=== PATIENT | female | born 1950 | race Caucasian/White ===

== ENCOUNTER 2023-03-27 14:00 | Emergency (ER) | payer MEDICARE, BC, SELFPAY ==
[2023-03-27] VITALS (13 sets, daily range): BP systolic 147–167; BP diastolic 69–92; PULSE 64–74; RESP 12–18; TEMP 36.9; O2SAT 95–99; BMI 37.8
--- NOTE | 2023-03-27 14:03 | ED.NURSE ---
Per Dr. Bates, no TTA needed.
--- NOTE | 2023-03-27 14:14 | CRLHL7_ITS ---
For Patients: As a result of the Cures Act, medical imaging exams and procedure reports are released immediately into your electronic medical record. You may view this report before your referring provider. If you have questions, please contact your health care provider. INDICATION: Injury COMPARISON: None TECHNIQUE: CT examination of the cervical spine is performed without contrast using spiral technique. Thin axial, sagittal and coronal reconstructions were made. Please note that all CT scans at this facility use dose modulation, iterative reconstruction, and/or weight-based dosing when appropriate to reduce radiation dose to as low as reasonably achievable. FINDINGS: : There is straightening which is usually due to muscle spasm, positioning or immobilization device. There is no visible acute fracture, dislocation or destructive process. There has been anterior fusion at C5, C6 and C7. Anterior fusion plate appears to be intact. There are degenerative changes especially just below the fusion. IMPRESSION: Straightening. Degenerative changes. Status post ACF at C5 through C7. No acute fracture, dislocation or destructive process Please note that all CT scans at this facility use dose modulation, iterative reconstruction, and/or weight-based dosing when appropriate to reduce radiation dose to as low as reasonably achievable. Dictated by Anand Coreas MD @ 03/27/2023 3:10:49 PM (Electronically Signed)
--- NOTE | 2023-03-27 14:14 | CRLHL7_ITS ---
For Patients: As a result of the Century Cures Act, medical imaging exams and procedure reports are released immediately into your electronic medical record. You may view this report before your referring provider. If you have questions, please contact your health care provider. INDICATION: Injury COMPARISON: None TECHNIQUE: CT examination of the head was performed as axial sections without intravenous contrast. Images were obtained from the vertex of the skull through the skull base. Please note that all CT scans at this facility use dose modulation, iterative reconstruction, and/or weight-based dosing when appropriate to reduce radiation dose to as low as reasonably achievable. FINDINGS: The brain shows no sign of mass lesion, mass effect, hemorrhage, or edema. There are involutional changes. There is letb-ao-kwogheqk cortical atrophy and there is mild to moderate white matter disease. There is no hydrocephalus. The visualized portions of the orbits are normal in appearance. The osseous structures are normal in appearance with no sign of abnormality in the skull base or calvarium. IMPRESSION: Involutional changes. No acute-appearing findings. Please note that all CT scans at this facility use dose modulation, iterative reconstruction, and/or weight-based dosing when appropriate to reduce radiation dose to as low as reasonably achievable. Dictated by Anadn Coreas MD @ 03/27/2023 3:07:43 PM (Electronically Signed)
--- NOTE | 2023-03-27 14:14 | CRLHL7_ITS ---
For Patients: As a result of the Century Cures Act, medical imaging exams and procedure reports are released immediately into your electronic medical record. You may view this report before your referring provider. If you have questions, please contact your health care provider. Indication: Fall. Technique: Two views of the lumbar spine, AP, lateral. Comparison: None Findings/Impression: Possible acute fractures through the L1 and L2 pars articularis, versus chronic pars defects. Recommend further evaluation with CT. Extensive multilevel endplate degenerative changes. Extensive facet arthropathy at the levels of L2 through S1. Dictated by Shani Crowe MD @ 03/27/2023 3:42:37 PM (Electronically Signed)
--- NOTE | 2023-03-27 14:15 | ED.FALL ---
HPI - Fall General Chief Complaint: Fall/Minor Trauma Stated Complaint: Fell, hit head/spine Time Seen by Provider: 03/27/23 14:08 History of Present Illness HPI Narrative: This 72-year-old female comes in for evaluation of injuries from a fall that occurred just prior to arrival. She states that she was working out in her garden and fell over backwards landing on her low back and then hitting her head. She states that she did not have loss of consciousness but certainly was dazed briefly. She states she laid there for about 5 minutes then was able to get up and ambulate. She reports pain in her low back, head, and neck. Related Data Previous Rx's Medication Instructions Recorded cyclobenzaprine 10 mg tablet 10 mg PO TID #15 tabs 03/27/23 hydrocodone 5 mg-acetaminophen 325 1 tab PO Q4-6H PRN pain #15 tabs 03/27/23 mg tablet ketorolac 10 mg tablet 10 mg PO Q8H 5 days #15 tabs 03/27/23 Allergies Allergy/AdvReac Type Severity Reaction Status Date / Time furosemide Allergy Severe Verified 03/27/23 14:56 latex Allergy Severe Verified 03/27/23 14:56 neomycin Allergy Severe Verified 03/27/23 14:56 silver Allergy Severe Verified 03/27/23 14:56 silver nitrate Allergy Severe Verified 03/27/23 14:56 tobramycin Allergy Severe Verified 03/27/23 14:56 almond oil Allergy Unknown Verified 03/27/23 14:56 amlodipine Allergy Unknown Verified 03/27/23 14:56 bacitracin Allergy Unknown Verified 03/27/23 14:56 ketoprofen Allergy Unknown Verified 03/27/23 14:56 lisinopril Allergy Unknown Verified 03/27/23 14:56 methocarbamol Allergy Unknown Verified 03/27/23 14:56 mometasone furoate Allergy Unknown Verified 03/27/23 14:56 morphine Allergy Unknown Verified 03/27/23 14:56 nickel Allergy Unknown Verified 03/27/23 14:56 povidone-iodine Allergy Unknown Verified 03/27/23 14:56 vancomycin Allergy Unknown Verified 03/27/23 14:56 Penicillins Allergy Verified 03/27/23 14:09 Sulfa (Sulfonamide Allergy Verified 03/27/23 14:09 Antibiotics) acrylates Allergy Unknown Uncoded 03/27/23 14:56 amitriptyline Allergy Unknown Uncoded 03/27/23 14:56 cyclopbenzaprine Allergy Unknown Uncoded 03/27/23 14:56 hydromorphone Allergy Unknown Uncoded 03/27/23 14:56 nuts Allergy Unknown Uncoded 03/27/23 14:56 oxycodone-tylenol Allergy Unknown Uncoded 03/27/23 14:56 erythromycin Allergy Uncoded 03/27/23 14:49 Review of Systems Status of ROS: Reports: 10 or more systems reviewed and unremarkable except as noted in History and below Narrative: Constitutional: No fevers, no weight gain or loss. Eyes: No discharge. No vision changes. HENT: No congestion, no sore throat, no ear pain. Cardiovascular: No chest pain, no palpitations. Respiratory: No shortness of breath, no wheezes, no cough. Gastrointestinal: No abdominal pain, no vomiting, no diarrhea. Genitourinary: No dysuria, no hematuria. Musculoskeletal: Low back pain and neck pain. Skin: No rashes, no pruritis. Neurological: No dizziness, weakness, sensory change, speech change. Endo/Heme/Allergies: No bruising or bleeding. No polydipsia. Pysch: no suicidality, no anxiety, no insomnia. All other systems reviewed and are negative. PFSH PFSH Social History Non-prescribed substance use: denies use Exam Narrative: Exam Narrative: Constitutional: Well-developed, well-nourished, no acute distress. HEENT: Normocephalic, atraumatic. Neck: Diffuse neck pain. Heart: Regular. No murmurs. Normal rate. Intact distal pulses. Lungs: Clear to auscultation. No chest discomfort. No wheezes, rhonchi, or rales. Abdomen: Normal bowel sounds. Nontender. No rebound tenderness. Genitalia: Deferred. Back: Diffuse low back pain. Extremities: Normal range of motion. No injury. Skin: Intact. No rash. Warm. No erythema or pallor. Neurologic: No altered sensation. No weakness. Alert and oriented. Psychiatric: No suicidality. No anxiety or depression. No insomnia. GCS is 15. Nursing notes and vitals signs are reviewed. Const: Vital Signs, click to edit/add: Vital Signs - 24 hr 03/27/23 14:09 03/27/23 14:21 03/27/23 14:23 Temperature 98.4 F Pulse Rate 69 71 Pulse Rate [Pulse Oximeter] 73 Respiratory Rate 18 Blood Pressure 155/85 H Blood Pressure [Le ft Forearm] 167/88 H Pulse Oximetry 99 99 97 Oxygen Delivery Me thod Room Air 03/27/23 14:24 03/27/23 14:46 03/27/23 15:00 Temperature Pulse Rate 70 70 64 Pulse Rate [Pulse Oximeter] Respiratory Rate Blood Pressure Blood Pressure [Le ft Forearm] Pulse Oximetry 95 96 99 Oxygen Delivery Me thod 03/27/23 15:02 03/27/23 15:03 03/27/23 15:15 Temperature Pulse Rate 65 65 66 Pulse Rate [Pulse Oximeter] Respiratory Rate 16 Blood Pressure 147/79 H Blood Pressure [Le ft Forearm] Pulse Oximetry 97 97 98 Oxygen Delivery Me thod Course Vital Signs Vital signs: Initial Vital Signs Temperature 98.4 F 03/27/23 14:09 Temperature Source Temporal Artery Scan 03/27/23 14:09 Pulse Rate 73 03/27/23 14:09 Pulse Rhythm Regular 03/27/23 14:09 Respiratory Rate 18 03/27/23 14:09 Blood Pressure 167/88 H 03/27/23 14:09 Blood Pressure Mean 114 H 03/27/23 14:09 Blood Pressure Position Supine 03/27/23 14:09 Pulse Oximetry 99 03/27/23 14:09 Oxygen Delivery Method Room Air 03/27/23 14:09 Vital Signs Temperature 98.4 F 03/27/23 14:09 Pulse Rate 73 03/27/23 14:09 Respiratory Rate 18 03/27/23 14:09 Blood Pressure 167/88 H 03/27/23 14:09 Pulse Oximetry 99 03/27/23 14:09 Oxygen Delivery Method Room Air 03/27/23 14:09 Temperature 98.4 F 03/27/23 14:09 Pulse Rate 66 03/27/23 15:15 Respiratory Rate 16 03/27/23 15:02 Blood Pressure 147/79 H 03/27/23 15:02 Pulse Oximetry 98 03/27/23 15:15 Oxygen Delivery Method Room Air 03/27/23 14:09 MDM - Fall MDM Narrative Medical decision making narrative: This patient comes in for evaluation of injuries from a fall that occurred just prior to arrival. She is not showing any neurologic deficits and is able to walk and talk normally. She does complain of significant neck pain with headache and also low back pain. She has had a surgery to fuse her neck in the past. CT imaging of head C-spine and lumbar spine all returned with no sign of acute injuries. She does have degenerative changes that are chronic. The patient did receive an intramuscular injection of Dilaudid 1 mg an oral doses of Benadryl. She states that she is feeling better she is able to get up to the bathroom without difficulty. She is okay to be discharged home and received prescriptions for Toradol, [place], and Flexeril. Imaging Data CT scan - head: Radiologist's impression: Involutional changes. No acute-appearing findings. CT Cervical Spine: Radiologist's impression: Straightening. Degenerative changes. Status post ACF at C5 through C7. No acute fracture, dislocation or destructive process XR Lumbar Spine: Radiologist's impression: Possible acute fractures through the L1 and L2 pars articularis, versus chronic pars defects. Recommend further evaluation with CT. Extensive multilevel endplate degenerative changes. Extensive facet arthropathy at the levels of L2 through S1. CT Lumbar spine: Radiologist's impression: 1. No acute osseous injury of the lumbar spine. 2. Moderate multilevel spondylosis. ECG Data Attestation: I personally reviewed and interpreted this ECG as follows: Interpretation: Normal sinus rhythm. Rate is 72 beats per minute. There are no ST or T-wave abnormalities. Discharge Plan Discharge Clinical Impression: Concussion without loss of consciousness, Back pain Patient Disposition: Home, Self-Care Condition: Stable Additional Instructions: Take medication as prescribed. Increase activity as tolerated. Follow up with MD or return if worsening. Prescriptions: New cyclobenzaprine 10 mg tablet 10 mg PO TID Qty: 15 0RF hydrocodone-acetaminophen 5-325 mg tablet 1 tab PO Q4-6H PRN (Reason: pain) Qty: 15 0RF ketorolac 10 mg tablet 10 mg PO Q8H 5 Days Qty: 15 0RF Follow Up/Referrals: Con Rodriguez MD [Primary Care Provider] - Stand Alone Forms: [facility] Info Instructions
--- NOTE | 2023-03-27 14:34 | ED.NURSE ---
Patient ambulated into ER. C-collar placed on neck due to neck pain.
--- NOTE | 2023-03-27 14:58 | ED.NURSE ---
took c-collar off after looking at images.
--- NOTE | 2023-03-27 15:10 | ED.NURSE ---
Report received from LOUIS Márquez.
[2023-03-27] MEDS: diphenhydrAMINE 25 MG CAPSULE PO ×2 (15:15→15:59)
[2023-03-27] MEDS: HYDROmorphone 0.5 mg/0.5 ml inj 1 MG IM (15:15)
--- NOTE | 2023-03-27 15:56 | CRLHL7_ITS ---
For Patients: As a result of the Century Cures Act, medical imaging exams and procedure reports are released immediately into your electronic medical record. You may view this report before your referring provider. If you have questions, please contact your health care provider. Indication: Fall, pain. Technique: CT of the lumbar spine was performed without intravenous contrast. Comparison: None relevant available. Findings: The lumbar vertebral body heights appear maintained without evidence of fracture. Diffuse osteopenia. Bone island within the L3 vertebral body. Mild levoconvex curvature. Mild to moderate multilevel spondylosis throughout the lumbar spine. At L3-4 disc bulge with facet hypertrophy result in moderate spinal canal narrowing. L4-5 disc bulge and facet hypertrophy result in mild to moderate spinal canal and right neural foraminal narrowing. Milder appearing spondylosis at the remaining lumbar levels. 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 Large right renal cyst. Impression: 1. No acute osseous injury of the lumbar spine. 2. Moderate multilevel spondylosis. Please note that all CT scans at this facility use dose modulation, iterative reconstruction, and/or weight-based dosing when appropriate to reduce radiation dose to as low as reasonably achievable. Dictated by Marcos Reveles MD @ 03/27/2023 4:59:00 PM (Electronically Signed)
== END 2023-03-27 17:25 | disposition home or self-care (01) ==
PROVIDERS: Emergency Provider Emergency Medicine Emergency Medical Services; PCP Family Medicine
DX: S06.0X0A Concussion without loss of consciousness, initial encounter (principal); W18.30XA Fall on same level, unspecified, initial encounter; Y93.H2 Activity, gardening and landscaping
CPT/HCPCS: 70450; 72100; 72125; 72131; 93005; 96372; 99284; 99285; A9270; J1170

== ENCOUNTER 2024-06-26 15:11 | Emergency (ER) | payer MEDICARE, BC, SELFPAY ==
[2024-06-26 15:33] VITALS: BP 165/90; PULSE 81; RESP 20; TEMP 36.2; O2SAT 97; BMI 39.9
--- NOTE | 2024-06-26 15:44 | CRLHL7_ITS ---
For Patients: As a result of the Cures Act, medical imaging exams and procedure reports are released immediately into your electronic medical record. You may view this report before your referring provider. If you have questions, please contact your health care provider. INDICATION: Cough, shortness of breath, positive COVID TECHNIQUE: 1 view chest radiograph COMPARISON: None. FINDINGS: Devices: Lower cervical ACDF. Large soft tissue attenuation from the chest wall. Lung volumes are good. Diffusely prominent interstitial markings without focal consolidation or pulmonary edema. No pleural effusion. No pneumothorax. Heart size is normal. IMPRESSION: Appearance typical of viral pneumonia. Dictated by Scarlet Kinsey MD @ 06/26/2024 4:32:00 PM (Electronically Signed)
--- NOTE | 2024-06-26 15:57 | ED.GENADULT ---
HPI - General Adult General Chief complaint: Shortness of Breath/Dyspnea Stated complaint: Covid+, shortness of breath Time Seen by Provider: 06/26/24 15:35 Source: patient Mode of arrival: ambulatory Limitations: no limitations History of Present Illness HPI narrative: 73-year-old female presenting today with body aches, decreased appetite, shortness of breath and cough going on day 3. Patient states she has not felt well for 3 days now with the symptoms mention. She tested herself for COVID 2 times today at home and they were both positive. She called the nurse line to get Diann, but unfortunately she was told to come to the ER for evaluation. Related Data Home Medications ?Medication ?Instructions ?Recorded ?Confirmed bupropion HCl 300 mg 24 hr tablet, 300 mg PO DAILY 06/26/24 06/26/24 extended release celecoxib 200 mg capsule 200 mg PO DAILY PRN pain 06/26/24 06/26/24 clobetasol 0.05 % topical ointment topical DAILY PRN 06/26/24 epinephrine 0.3 mg/0.3 mL 1 IM anaphylaxis 06/26/24 injection, auto-injector fluticasone propionate 230 2 puff inhalation BID 06/26/24 06/26/24 mcg-salmeterol 21 mcg/actuation HFA inhaler (Advair HFA) gabapentin 300 mg capsule mg PO 06/26/24 hydroxychloroquine 200 mg tablet 200 mg PO DAILY 06/26/24 06/26/24 hydroxyzine HCl 25 mg tablet 25 mg PO QPM PRN itch 06/26/24 06/26/24 levalbuterol tartrate 45 1 inh inhalation Q6H 06/26/24 06/26/24 mcg/actuation aerosol inhaler (Xopenex HFA) levalbuterol tartrate 45 2 puff inhalation Q6H PRN wheezing 06/26/24 06/26/24 mcg/actuation aerosol inhaler (Xopenex HFA) levothyroxine 175 mcg tablet 175 mcg PO 06/26/24 (Synthroid) lorazepam 1 mg tablet 1 mg PO QPM PRN anxiety 06/26/24 06/26/24 methotrexate sodium 2.5 mg tablet mg PO 06/26/24 triamterene 37.5 1.5 tab PO DAILY 06/26/24 06/26/24 mg-hydrochlorothiazide 25 mg tablet Previous Rx's ?Medication ?Instructions ?Recorded cyclobenzaprine 10 mg tablet 10 mg PO TID #15 tabs 03/27/23 hydrocodone 5 mg-acetaminophen 325 1 tab PO Q4-6H PRN pain #15 tabs 03/27/23 mg tablet ketorolac 10 mg tablet 10 mg PO Q8H 5 days #15 tabs 03/27/23 Allergies Allergy/AdvReac Type Severity Reaction Status Date / Time furosemide Allergy Severe Verified 03/27/23 14:56 latex Allergy Severe Verified 03/27/23 14:56 neomycin Allergy Severe Verified 03/27/23 14:56 silver Allergy Severe Verified 03/27/23 14:56 silver nitrate Allergy Severe Verified 03/27/23 14:56 tobramycin Allergy Severe Verified 03/27/23 14:56 almond oil Allergy Unknown Verified 03/27/23 14:56 amlodipine Allergy Unknown Verified 03/27/23 14:56 bacitracin Allergy Unknown Verified 03/27/23 14:56 ketoprofen Allergy Unknown Verified 03/27/23 14:56 lisinopril Allergy Unknown Verified 03/27/23 14:56 methocarbamol Allergy Unknown Verified 03/27/23 14:56 mometasone furoate Allergy Unknown Verified 03/27/23 14:56 morphine Allergy Unknown Verified 03/27/23 14:56 nickel Allergy Unknown Verified 03/27/23 14:56 povidone-iodine Allergy Unknown Verified 03/27/23 14:56 vancomycin Allergy Unknown Verified 03/27/23 14:56 Penicillins Allergy Verified 03/27/23 14:09 Sulfa (Sulfonamide Allergy Verified 03/27/23 14:09 Antibiotics) acrylates Allergy Unknown Uncoded 03/27/23 14:56 amitriptyline Allergy Unknown Uncoded 03/27/23 14:56 cyclopbenzaprine Allergy Unknown Uncoded 03/27/23 14:56 hydromorphone Allergy Unknown Uncoded 03/27/23 14:56 nuts Allergy Unknown Uncoded 03/27/23 14:56 oxycodone-tylenol Allergy Unknown Uncoded 03/27/23 14:56 erythromycin Allergy Uncoded 03/27/23 14:49 Review of Systems Status of ROS: Reports: 10 or more systems reviewed and unremarkable except as noted in History and below PFSH PFSH Social History Smoking Status: Never smoker Do you use any of these nicotine containing products: None How often do you have a drink containing alcohol: never AUDIT-C Alcohol total score: 0 Non-prescribed substance use: denies use Exam Narrative: Exam Narrative: Well-nourished well-developed patient in no acute distress. Alert and oriented. Answers questions appropriately. Mood and affect are appropriate. Thoughts are goal oriented and rational. No tangential or magical thinking noted. Patient speaks in full sentences without needing to catch her breath. Coughs periodically. HEENT: Normocephalic atraumatic. Pupils are equally round reactive to light. Extraocular muscles are intact. Conjunctivae are moist without any icterus noted. Moist mucous membranes. Cardiovascular: Heart is regular rate and rhythm S1 and S2 are present without any murmurs. Lungs: Clear to auscultation bilaterally no wheezes rhonchi or rales are appreciated. Patient takes deep breaths without any discomfort. Abdomen: Soft and nontender nondistended with normal bowel sounds. Skin: Well perfused without any obvious rashes. Const: Vital Signs, click to edit/add: Vital Signs - 24 hr 06/26/24 15:33 Temperature 97.2 F L Pulse Rate [Pulse Oximeter] 81 Respiratory Rate 20 Blood Pressure [Ri ght Upper Arm] 165/90 H Pulse Oximetry 97 Oxygen Delivery Me thod Room Air Course Course ED Course: EKG, read by me, shows normal sinus rhythm, prolonged QT, pulse 74. Normal troponin. Normal point of care creatinine. Chest x-ray consistent with COVID infection. I went through all the patient's medications to look for interactions with paxlovid. Multiple of her medications have week potential interactions be hydroxyzine has a potential interaction and her salmeterol is recommended to not be co administered. We discussed Paxlovid verses her salmeterol and I think would be a bad idea for her to quit her b.i.d. salmeterol at this time. Given that she also has prolonged QT on her EKG which the patient states is not new, I think that the potential interactions with the other medications we could increase her QT. At this time I do not recommend the use of Paxlovid. Patient understands. Vital Signs Vital signs: Initial Vital Signs Temperature 97.2 F L 06/26/24 15:33 Temperature Source Temporal Artery Scan 06/26/24 15:33 Pulse Rate 81 06/26/24 15:33 Respiratory Rate 20 06/26/24 15:33 Blood Pressure 165/90 H 06/26/24 15:33 Blood Pressure Mean 115 H 06/26/24 15:33 Pulse Oximetry 97 06/26/24 15:33 Oxygen Delivery Method Room Air 06/26/24 15:33 Vital Signs Temperature 97.2 F L 06/26/24 15:33 Pulse Rate 81 06/26/24 15:33 Respiratory Rate 20 06/26/24 15:33 Blood Pressure 165/90 H 06/26/24 15:33 Pulse Oximetry 97 06/26/24 15:33 Oxygen Delivery Method Room Air 06/26/24 15:33 Temperature 97.2 F L 06/26/24 15:33 Pulse Rate 81 06/26/24 15:33 Respiratory Rate 20 06/26/24 15:33 Blood Pressure 165/90 H 06/26/24 15:33 Pulse Oximetry 97 06/26/24 15:33 Oxygen Delivery Method Room Air 06/26/24 15:33 Medical Decision Making MDM Narrative Medical decision making narrative: 73-year-old female with COVID-19. Patient is not hypoxic, tachypneic or tachycardic at this time. She has multiple potential medication interactions with paxlovid. Therefore at this time we will proceed with symptomatic treatment. Reasons for close follow-up were discussed reasons to return to the emergency department were also discussed. Lab Data Lab results reviewed: Yes I reviewed the patient's lab results Labs: Lab Results 06/26/24 06/26/24 Range/Units 15:46 16:04 POC Creatinine 1.0 (0.6-1.3) mg/dl POC Troponin I 0.00 L (0.01-0.04) ng/ml Imaging Data Chest x-ray: Attestation: I have reviewed the pertinent imaging results. Radiologist's impression: 1 view chest radiograph COMPARISON: None. FINDINGS: Devices: Lower cervical ACDF. Large soft tissue attenuation from the chest wall. Lung volumes are good. Diffusely prominent interstitial markings without focal consolidation or pulmonary edema. No pleural effusion. No pneumothorax. Heart size is normal. IMPRESSION: Appearance typical of viral pneumonia. Discharge Plan Discharge Clinical Impression: COVID-19 Patient Disposition: Home, Self-Care Condition: Stable Instructions: COVID-19 (Coronavirus Disease 2019) (ED), COVID-19: Slow the Coronavirus Spread (ED) Additional Instructions: Paxlovid is contraindicated at this time given its multiple potential medical reactions with your current medications. Therefore recommend that you rest as much as possible, increase fluid intake on a daily basis. Follow-up with your primary care provider in 48-72 hours. Return to the emergency department if you develop increasing shortness of breath or difficulty breathing. Prescriptions: No Action cyclobenzaprine 10 mg tablet 10 mg PO TID Qty: 15 0RF hydrocodone-acetaminophen 5-325 mg tablet 1 tab PO Q4-6H PRN (Reason: pain) Qty: 15 0RF ketorolac 10 mg tablet 10 mg PO Q8H 5 Days Qty: 15 0RF celecoxib 200 mg capsule 200 mg PO DAILY PRN (Reason: pain) triamterene-hydrochlorothiazid 37.5-25 mg tablet 1.5 tab PO DAILY hydroxyzine HCl 25 mg tablet 25 mg PO QPM PRN (Reason: itch) clobetasol 0.05 % ointment topical DAILY PRN lorazepam 1 mg tablet 1 mg PO QPM PRN (Reason: anxiety) epinephrine 0.3 mg/0.3 mL auto-injector 1 IM bupropion HCl 300 mg tablet extended release 24 hr 300 mg PO DAILY levalbuterol tartrate [Xopenex HFA] 45 mcg/actuation HFA aerosol inhaler 2 puff inhalation Q6H PRN (Reason: wheezing) fluticasone propion-salmeterol [Advair HFA] 230-21 mcg/actuation HFA aerosol inhaler 2 puff inhalation BID levalbuterol tartrate [Xopenex HFA] 45 mcg/actuation HFA aerosol inhaler 1 inh inhalation Q6H levothyroxine [Synthroid] 175 mcg tablet 175 mcg PO methotrexate sodium 2.5 mg tablet PO gabapentin 300 mg capsule PO hydroxychloroquine 200 mg tablet 200 mg PO DAILY Follow Up/Referrals: Con Rodriguez MD [Primary Care Provider] - Stand Alone [facility]
[2024-06-26 17:07] VITALS: BP 162/94; PULSE 76; RESP 22
== END 2024-06-26 17:08 | disposition home or self-care (01) ==
PROVIDERS: Emergency Provider Family Medicine; PCP Family Medicine
DX: U07.1 COVID-19 (principal)
CPT/HCPCS: 71045; 82565; 84484; 93005; 99283; 99284; 99285